=== PATIENT | female | born 1990 | race Caucasian/White ===

== ENCOUNTER → 2018-07-29 | Outpatient (CLI) | payer BC | LOC: BMCIMAGING 08:53 | PROVIDERS: ATTEND Internal Medicine | DX: J18.9 Pneumonia, unspecified organism (principal); Z87.891 Personal history of nicotine dependence ==

== ENCOUNTER → 2018-09-23 | Outpatient (CLI) | payer BC | LOC: FIMAGING 12:25 | PROVIDERS: ATTEND Internal Medicine | DX: N83.291 Other ovarian cyst, right side (principal) ==